=== PATIENT | male | born 1975 | race Caucasian/White ===

== ENCOUNTER 2019-10-21 15:12 | Emergency (ER) | payer OTHER, SELFPAY ==
[2019-10-21 15:13] VITALS: BP 137/79; PULSE 72; RESP 15; TEMP 37.1; O2SAT 96; BMI 33.0
--- NOTE | 2019-10-21 15:26 | ED.VISSUMM ---
- ER Visit Summary Date of Service: 10/21/19 Chief Complaint: Diarrhea and abdominal pain History of Present Illness: The patient is a 44 M who presents with diarrhea and abdominal pain for the past 2 days. Patient states he recently traveled to [facility] for work and developed some diarrhea and cramping abdominal pain while he was there. Patient states it resolved prior to him coming home. Patient states that over the past 2 days the diarrhea and abdominal cramping has returned. Patient states nothing makes it better or worse. She states the cramping is over the lower abdomen. Patient denies any fevers or chills. She denies any melena or hematochezia. Physical Examination: Vital signs are stable. Patient is afebrile. Patient is in no acute distress. Oral mucosa is pink and somewhat dry. Neck is supple. Trachea is midline. There is no JVD. Heart was regular rate and rhythm. Lungs are clear and equal bilaterally. Abdomen is soft and nontender. There is some mild tenderness over the lower abdomen. There is no rebound or guarding noted. Cranial nerves II through XII are intact. There are no focal motor or sensory deficits. Test Results: A mild leukocytosis of 12.7. Comprehensive metabolic profile showed a potassium of 2.8 and a slightly elevated bilirubin of 1.4. The remaining liver function tests were normal. Lipase was slightly elevated at 499. Urinalysis does not show any evidence of urinary tract infection. Stool was sent for enteric pathogens. Emergency Department Course and Treatment: Patient was given IV fluids and Zofran here. Patient was given a dose of oral potassium here. Patient was instructed to follow-up with his primary care physician in 3 to 5 days. Patient was instructed return if worse in any way. Patient understood and was agreeable with the plan. All questions were answered. Disposition: Discharge home Impression: 1. Diarrhea 2. Abdominal pain 3. Hypokalemia This note was generated with [employer] dictation software. It may contain incorrect words, spelling, and punctuation that were not noted in review of the chart prior to signing ED Disposition - Plan for ED Patient: Disposition: Home or Assisted Living Diagnosis: Abdominal pain, Diarrhea, Hypokalemia Instructions: DIET, Vomiting or Diarrhea [7yr-Adult] Referrals: Haley Dubon MD [Primary Care Provider] - 3-5 Days
[2019-10-21 15:35] VITALS: BP 137/79; PULSE 72; RESP 15; TEMP 37.1; O2SAT 96
[2019-10-21] MEDS: 0.9% Normal Saline 1,000 ML 1000 ML IV (15:38)
[2019-10-21 15:56] LABS: Absolute Lymphocyte Count 2.38 X10^3/uL (0.83-4.51); Absolute Neutrophil Count 9.2 X10^3/uL (2.0-7.7); Basophil# 0.06 X10^3/uL; Basophil% 0.5 % (0-1); Eosinophil# 0.07 X10^3/uL; Eosinophils% 0.6 % (0-5); Hematocrit 41.9 % (40-54); Hemoglobin 14.2 g/dL (13.0-16.5); Lymphocyte # 2.38 X10^3/ul (4.0); Lymphocyte % 18.8 % (19-41); Mean Corp Hgb Conc 33.9 g/dL (32-36); Mean Corpuscular Hgb 27.8 pg (27.0-32.0); Mean Platelet Vol. 11.5 fl (6.2-12.0); Monocyte# 0.94 X10^3/uL; Monocyte% 7.4 % (0-10); NRBC Flagged by Analyzer 0 % (0-5); Neutrophil # 9.16 X10^3/uL (2.7-7.7); Neutrophil % 72.2 % (47-70); Platelet Count 256 K/mm3 (150-450); RBC Distribution Width CV 12.7 % (11.6-14.6); RBC Distribution Width SD 38.1 fl (35.1-43.9); Red Blood Count 5.11 M/mm3 (4.6-6.2); White Blood Count 12.7 K/mm3 (4.4-11.0)
[2019-10-21 16:02] LABS: Color, Urine Yellow (Yellow); Glucose, Dipstick Normal (Normal); Ketone-Dipstick 5 mg/dl (Negative); Leukocyte Esterase-Dipstick 25 /ul (Negative); Nitrite-Dipstick Negative (Negative); Occult Blood-Urine Negative /ul (Negative); Protein-Dipstick 30 mg/dl (Negative); Urine Bilirubin Dipstick Negative (Negative); Urine Clarity Clear (Clear); Urine Urobilinogen Normal (Normal)
[2019-10-21 16:11] LABS: ALB/GLOB Ratio 0.8 RATIO (0.9-2.4); AST(SGOT) 33 U/L (15-37); Alanine Aminotransfer ALT/SGPT 61 U/L (16-61); Albumin, Serum 3.4 g/dL (3.2-5.0); Alkaline Phosphatase 87 U/L (45-117); Anion Gap 8 (5-15); BUN 17 mg/dL (7-18); BUN/Creat Ratio 17.7 RATIO (10-20); Calcium,Total 9.2 mg/dL (8.5-10.1); Chloride 105 mmol/L (98-107); Creatinine, Serum 0.96 mg/dL (0.70-1.30); EST Glomerular Filtration Rate 91 mL/min (>60); Est Glom Filt Rate - Afr Amer 110 mL/min (>60); Estimated Creatinine Clearance 118.58 ml/min; Globulin 4.3 g/dL (2.2-4.2); Glucose 155 mg/dL (74-106); Lipase 499 U/L (73-393); Potassium 2.8 mmol/L (3.5-5.1); Protein, Total 7.7 g/dL (6.4-8.2); Sodium Level 142 mmol/L (136-145)
[2019-10-21 16:11] LABS: Bacteria 1+ /hpf (None Seen); Hyaline Cast 0-5 SEEN /lpf (0-5); Mucous, Urine 2+ /hpf (<or=2+); Red Blood Cells-Urine 0-5 SEEN /hpf (0-5); Squamous Epithelial Cells - UA 0-5 SEEN /hpf (0-5); White Blood Cells 0-5 SEEN /hpf (0-5)
[2019-10-21 16:14] VITALS: TEMP 37.2
[2019-10-21 16:55] VITALS: BP 135/80; PULSE 64; RESP 16; O2SAT 97
--- NOTE | 2019-10-21 16:55 | ED.RN ---
REVIEWED D/C INSTRUCTIONS, FOLLOW UP CARE, AND S/S THAT WOULD WARRANT A RETURN TO THE ED WITH PT. PT VERBALIZED AN UNDERSTANDING AND DENIES FURTHER QUESTIONS FOR THIS RN. PT SKIN P/W/D, RESP EVEN AND UNLABORED, PT A&O X 3, NO DISTRESS NOTED. PT AMBULATED OUT OF ED, GAIT STEADY.
--- NOTE | 2019-10-22 12:20 | ED.RN ---
STOOL MICRO RESULTED, PATIENT POSITIVE FOR CAMPLYOBACTER, PATIENT MADE AWARE. DR. NÚÑEZ PRESCRIBES LEVAQUIN 500 MG PO DAILY X3 DAYS WITHOUT REFILLS. PATIENT REQUESTS PRESCRIPTION CALLED INTO [facility] IN [place]. RX CALLED IN BY THIS RN.
== END 2019-10-21 16:56 | disposition home or self-care (01) ==
PROVIDERS: Emergency Provider Emergency Medicine; Family Provider Internal Medicine; PCP Internal Medicine
DX: R19.7 Diarrhea, unspecified (principal); R10.30 Lower abdominal pain, unspecified; E87.6 Hypokalemia; K21.9 Gastro-esophageal reflux disease without esophagitis; E11.9 Type 2 diabetes mellitus without complications; I10 Essential (primary) hypertension; F32.9 Major depressive disorder, single episode, unspecified; Z79.84 Long term (current) use of oral hypoglycemic drugs; Z79.899 Other long term (current) drug therapy
CPT/HCPCS: 80053; 81001; 83690; 85025; 87506; 96360; 99284; J7030; A4216; J2405